=== PATIENT | male | born 1950 | race Caucasian/White ===

== ENCOUNTER 2016-12-02 15:29 | Inpatient (IN) | payer MEDICARE ==
[~2016-12-02] VITALS: Ht 177.8 cm; Wt 59.0 kg
--- NOTE | ~2016-12-02 | CN ---
PATIENT NAME:NIRMALA GREGORIO MEDICAL RECORD: [id number] : 54 LOCATION:D.[facility] ADMIT DATE: 12/02/16 ACCOUNT: [id number] CONSULTING PHYSICIAN: VICKY RAMOS MD REFERRING PHYSICIAN: ROSENDA ODEN MD DATE OF CONSULTATION: 12/03/2016 CONSULT REQUESTING PHYSICIAN: Rosenda Oden MD REASON FOR CONSULTATION: Pneumonia, right mid and right lower lobe. Acute exacerbation of COPD. HISTORY OF PRESENT ILLNESS: Mr. Gregorio is a 66-year-old gentleman with a history of moderate to severe COPD, still everyday smoker, home oxygen dependent. The patient was admitted with a worsening shortness of breath for the last few days. He is coughing, reza colored sputum. Also, he has aches and pain. He is wheezing. There are no chills. REVIEW OF SYSTEMS: Mainly in the history of present illness. PAST MEDICAL HISTORY: 1. COPD of moderate to severe degree. 2. Chronic hypoxic respiratory failure. 3. History of leukemia. 4. History of spontaneous pneumothorax on the right. 5. History of pneumonia times 2 in the past. 6. Gastroesophageal reflux disease. 7. Anxiety. 8. Chronic pain syndrome. 9. Hypertension. 10. Coronary artery disease status post stent placement. PAST SURGICAL HISTORY: 1. Herniorrhaphy. 2. Right-sided pleurodesis. ALLERGIES: There are no known drug allergies. PRESENT MEDICATIONS: [employer] was reviewed. PERSONAL AND SOCIAL HISTORY: The patient is still everyday smoking more than a pack a day. He is also a drinker. FAMILY HISTORY: Noncontributory. PHYSICAL EXAMINATION: GENERAL: Now, the patient is lying comfortably. He is not in acute distress. VITAL SIGNS: The blood pressure is 169/92, pulse is 89, respirations 18, temperature is 97.9, SpO2 is 90-93% on 2 liters nasal cannula. HEENT: Conjunctivae are pink. Sclerae are nonicteric. NECK: Supple, no JVD. CHEST: There are crackles at the right base on forceful expiration. HEART: Rhythm regular, normal sound, no murmur. ABDOMEN: Soft. Bowel sounds present. No hepatosplenomegaly. RECTAL: Deferred. CONSULT REPORT [id number] NIRMALA GREGORIO EXTREMITIES: No cyanosis, no clubbing, no pedal edema. SKIN: Warm, normal turgor. CENTRAL NERVOUS SYSTEM: The patient is awake and alert. There is no obvious cranial nerve abnormality. The gait was not tested. CHEST RADIOGRAPH: There is hyperinflation. There is increased infiltrate in the right mid lung and lower lobe. There is also increased interstitial markings. LABORATORY DATA: CBC: The WBC is 6, hemoglobin is 10.1, hematocrit 31.7, and the platelet 156. Chemistry: Sodium 132, potassium 4.6, BUN is 39, creatinine is 1.9. IMPRESSION: 1. Lmfhz-ve-rvydhva hypoxic respiratory failure. 2. Acute exacerbation of chronic obstructive pulmonary disease. 3. Pneumonia, right middle lobe and right lower lobe, possible community-acquired pneumonia. 4. Acute renal failure. 5. Tobacco dependence syndrome. 6. Gastroesophageal reflux. 7. History of leukemia. 8. History of right spontaneous pneumothorax status post pleurodesis. 9. Hypertension. RECOMMENDATION: I will continue albuterol/ipratropium nebulizer. Start Brovana, budesonide nebulizer. Start methylprednisolone IV. Continue Zithromax and Rocephin IV. Check the CT scan of the chest. Follow up labs in the morning. Dr. Oden, once again thank you for involving me in the care of Mr. Gregorio. TRANSINT:[id number] Voice Confirmation ID: [id number] DOCUMENT ID: [id number] VICKY RAMOS MD CC: MARGRET CLEANING DO and ROSENDA ODEN MD [id number] DICTATION DATE: 12/03/16 1446 DIRECTOR TRANSPORTATION: 12/03/16 2306 ADM IN [place] [address] [place] [address]
[~2016-12-02 15:29] MED LIST: DURAGESIC1 PATCH .2 TRANSDERM; FLOMAX0.4 MG PO; HYDROCODONE-APA1 TAB PO; LEVAQUIN500 MG PO; MOTRIN600 MG PO; NEURONTIN800 MG PO; OMEPRAZOLE20 M1 PO; PHENERGAN25 M1 PO; PRINIVIL10 MG PO; STERAPRED DS 1210 MG PO; ZANAFLEX4 MG PO
[2016-12-02 15:55] LABS: BASOPHILS 0.2 % (0-2); EOSINOPHILS 0.5 % (0-7); HEMATOCRIT 31.7 % (42.0-54.0); HEMOGLOBIN 10.1 g/dL (13.5-17.5); IMMATURE GRANULOCYTES 0.7 % (0-5); LYMPHOCYTES 9.2 % (15-50); MCH 31.2 pg (26.0-34.0); MCHC 31.9 g/dL (31.0-37.0); MCV 97.8 fL (80.0-100.0); MEAN PLATELET VOLUME 11.3 fL (7.4-10.4); MONOCYTES 8.1 % (2-11); NEUTROPHILS 81.3 % (40-80); PLATELET COUNT 156 10x3/uL (130-400); RBC 3.24 10x6/uL (4.20-6.10); RDW 14.9 % (11.5-14.5)
[2016-12-02 16:04] LABS: ALBUMIN 2.4 g/dL (3.4-5.0); ANION GAP 19.4 mmol/L (8-16); BILIRUBIN - TOTAL 0.3 mg/dL (0.2-1.3); CALCIUM 8.3 mg/dL (8.5-10.1); CARBON DIOXIDE 16.2 mmol/L (21.0-32.0); CREATININE - SERUM 1.9 mg/dL (0.6-1.3); POTASSIUM - SERUM 4.6 mmol/L (3.5-5.1); PROTEIN - SERUM 5.9 g/dL (6.4-8.2)
[2016-12-02 22:03] VITALS: BP 118/67; BMI 18.6
[2016-12-02] MEDS ORDERED: MOVANTIK25 MG PO (22:57)
[2016-12-02] MEDS ORDERED: CELEXA20 MG PO (22:57)
[2016-12-02] MEDS ORDERED: PROSCAR5 MG PO (22:58)
[2016-12-02] MEDS ORDERED: BUSPAR5 MG PO (22:59)
[2016-12-02] MEDS ORDERED: INCRUSE ELLI62.5 MCG INH (23:00)
[2016-12-02] MEDS ORDERED: AMBIEN5 MG PO (23:01)
[2016-12-02] MEDS ORDERED: VOLTAREN75 MG PO (23:01)
[2016-12-02] MEDS ORDERED: PROAIR HFA8.5 GM INH (23:02)
[2016-12-03] VITALS: BP 146/70
--- NOTE | 2016-12-03 03:55 | NUR ---
ASSESSED AT THE TIME OF ADMISSION. PT IS ALERT AND ORIENTED, ABLE TO VERBALIZE NEEDS. HE HAS A URINAL AT THE BEDSIDE AND IS ABLE TO TURN AND REPOSITION HIMSELF. HE HAS SCD'S AT THE BEDSIDE BUT IS NOT WEARING THEM. LEFT ARM IS SALINE LOCKED AFTER RECEIVING THE ANTIBIOTICS NEEDED. HE HAS O2 AT 2 LITERS AND LUNG SOUNDS ARE WITH CRACKLES AND WHEEZING. THE BED IS LOW, RAILS UP X'S 1 WITH CALL LIGHT AT HAND AND WHITE BED ALARM IN PLACE.
[2016-12-03 04:00] VITALS: BP 144/68
--- NOTE | 2016-12-03 08:02 | NUR ---
AWAKE AND ALERT AT THIS TIME. OXYGEN ON 2L VIA NC. DISCUSSED WITH PT THE IMPORTANCE OF BED REST WITH HIS PNEUMONIA AND THAT HE SHOULD USE THE URINAL PROVIDED AND CALL WHEN HE NEEDED IT EMPTIED. PT VERBALIZED UNDERSTANDING. CALL LIGHT IN REACH, WILL CONTINUE WITH PLAN OF CARE.
[2016-12-03 09:19] VITALS: BP 129/80
[2016-12-03 09:59] LABS: BASOPHILS 0 % (0-2); EOSINOPHILS 0 % (0-7); HEMATOCRIT 30.6 % (42.0-54.0); HEMOGLOBIN 10.2 g/dL (13.5-17.5); IMMATURE GRANULOCYTES 0.3 % (0-5); LYMPHOCYTES 8.1 % (15-50); MCH 30.9 pg (26.0-34.0); MCHC 33.3 g/dL (31.0-37.0); MEAN PLATELET VOLUME 11.1 fL (7.4-10.4); MONOCYTES 2.8 % (2-11); NEUTROPHILS 88.8 % (40-80); RDW 14.5 % (11.5-14.5)
[2016-12-03 10:00] LABS: MCV 92.7 fL (80.0-100.0); PLATELET COUNT 193 10x3/uL (130-400); WBC 3.6 10x3/uL (4.8-10.8)
[2016-12-03 10:18] LABS: ALBUMIN 2.3 g/dL (3.4-5.0); ANION GAP 17.4 mmol/L (8-16); BILIRUBIN - TOTAL 0.24 mg/dL (0.2-1.3); CALCIUM 9.1 mg/dL (8.5-10.1); CREATININE - SERUM 1.6 mg/dL (0.6-1.3); POTASSIUM - SERUM 4.4 mmol/L (3.5-5.1); PROTEIN - SERUM 6.7 g/dL (6.4-8.2)
--- NOTE | 2016-12-03 11:51 | NUR ---
SCHEDULED MEDICATIONS ADMINISTERED AT THIS TIME AND PT SIGNED BED ALARM DECLINATION. VERBALIZES UNDERSTANDING OF DECLINATION. CALL LIGHT IN REACH, WILL CONTINUE WITH PLAN OF CARE.
[2016-12-03 12:26] VITALS: Ht 177.8 cm; Wt 59.0 kg
[2016-12-03 12:45] VITALS: BP 169/92
--- NOTE | 2016-12-03 13:47 | NUR ---
SCHEDULED MEDICATIONS ADMINISTERED AT THIS TIME. CALL LIGHT IN REACH, WILL CONTINUE WITH PLAN OF CARE.
[2016-12-03 16:45] VITALS: BP 151/77
[2016-12-03 20:00] VITALS: BP 135/72
[2016-12-04] VITALS: BP 146/80
--- NOTE | 2016-12-04 03:42 | NUR ---
ASSESSED AT THE BEGINNING OF THE SHIFT. PT IS ALERT AND ORIENTED, ABLE TO VERBALIZE NEEDS. HE IS WEARING HIS O2 AT 2 LITERS AND HIS TELEMETRY IS SHOWING 90'S SINUS RHYTHM. HE HAS HAD A FEW ANTIBOTICS AND IS NOW BACK ON HIS BANANA BAG IV. BEFORE BED HE WAS TALKING TO HIS ON THE PHONE AND TELLING HER HE WANTED SOMETHING FOR PAIN. AFTER TALKING TO HER FOR HIM WE LEFT IT WITH US TRYING HIM ON THE SLEEPING PILL AND ATIVAN BEFORE CALLING THE MD FOR STRONGER MEDS. HE TOOK THEM AND SLEPT FOR THE FIRST PART OF THE SHIFT, JUST NOW WAKING UP GOOD AND ASKING FOR COFFEE. WE ARE ASSISTING HIM TO THE BATHROOM TO VOID WHEN HE WILL LET US AND HE IS ABLE TO TURN AND REPOSITION BY HIMSELF. THE BED IS LOW, RAILS UP X'S 2 AND THE CALL LIGHT IS AT HAND.
[2016-12-04 04:00] VITALS: BP 133/68
[2016-12-04 05:34] LABS: BASOPHILS 0 % (0-2); EOSINOPHILS 0 % (0-7); HEMATOCRIT 29.1 % (42.0-54.0); HEMOGLOBIN 9.6 g/dL (13.5-17.5); IMMATURE GRANULOCYTES 0.4 % (0-5); MCV 93.9 fL (80.0-100.0); MONOCYTES 4.5 % (2-11); NEUTROPHILS 83.1 % (40-80); PLATELET COUNT 205 10x3/uL (130-400); RDW 14.8 % (11.5-14.5); WBC 2.7 10x3/uL (4.8-10.8)
[2016-12-04 05:55] LABS: ALBUMIN 2.2 g/dL (3.4-5.0); ANION GAP 15.3 mmol/L (8-16); BILIRUBIN - TOTAL 0.2 mg/dL (0.2-1.3); CALCIUM 8.9 mg/dL (8.5-10.1); CARBON DIOXIDE 21.5 mmol/L (21.0-32.0); CREATININE - SERUM 1.4 mg/dL (0.6-1.3); POTASSIUM - SERUM 3.8 mmol/L (3.5-5.1); PROTEIN - SERUM 6.4 g/dL (6.4-8.2)
--- NOTE | 2016-12-04 07:45 | NUR ---
ASSESSMENT COMPLETE. IV TO L FA PATENT. BANANA BAG INFUSING AT 75 CC/HR VIA PUMP. O2 2L NC IN USE. REFUSING TO WEAR SCD'S. CALL CENTER OPERATOR SHOWING SR 91 PER TECH. NONPRODUCTIVE COUGH. GENERALIZED WEAKNESS. DENIES ANY NEEDS AT PRESENT.
[2016-12-04 07:49] VITALS: BP 149/77
--- NOTE | 2016-12-04 10:00 | NUR ---
RESTING QUIETLY IN BED WITH EYES CLOSED. RESP EVEN,NONLABORED.
[2016-12-04 12:18] VITALS: BP 140/70
--- NOTE | 2016-12-04 13:30 | NUR ---
RESTING QUIETLY WITH EYES CLOSED. RESP EVEN,NONLABORED.
[2016-12-04 14:43] VITALS: BP 141/76
--- NOTE | 2016-12-04 15:46 | NUR ---
C/O NOT HAVING HIS HOME MED NORCO. BECOMING VERY UPSET AND WANTING THE DOCTOR CALLED. SPOKE WITH DR. ODEN. NEW ORDER RECEIVED FOR PATIENT TO TAKE HIS NORCO PRESCRIBED AT HOME.
--- NOTE | 2016-12-04 16:00 | NUR ---
RESTING QUIETLY AT THIS TIME.
--- NOTE | 2016-12-04 18:30 | NUR ---
NO CHANGES NOTED AT PRESENT.
--- NOTE | 2016-12-04 19:00 | NUR ---
PATIENT IN BED WATCHING TV. HOB 30 DEGREES. AAOX4. RR EVEN AND UNLABORED. O2 @ 2L VIA NC. 0 S/S OF DISTRESS. STATES PAIN IS A 7/10. IV TO LEFT FA PATENT WITH NO REDNESS OR SWELLING. TELEMETRY ON. SCD'S IN ROOM BUT OFF. SRX2. BED LOW. CALL LIGHT WITHIN REACH.
[2016-12-04 20:00] VITALS: BP 151/78
--- NOTE | 2016-12-04 22:30 | NUR ---
ALL NIGHTTIME MEDICATIONS ADMINISTERED PER ORDER. ATIVAN GIVEN FOR AGITATION. NO OTHER NEEDS AT THIS TIME.
[2016-12-05] VITALS: BP 163/83
--- NOTE | 2016-12-05 03:06 | NUR ---
PATIENT SLEEPING WITH NO DISTRESS NOTED. CALL LIGHT WITHIN REACH.
[2016-12-05 04:00] VITALS: BP 159/84
[2016-12-05 05:13] LABS: BASOPHILS 0 % (0-2); EOSINOPHILS 0 % (0-7); HEMATOCRIT 28.2 % (42.0-54.0); HEMOGLOBIN 9.3 g/dL (13.5-17.5); IMMATURE GRANULOCYTES 1.2 % (0-5); LYMPHOCYTES 9.8 % (15-50); MCH 31.3 pg (26.0-34.0); MCV 94.9 fL (80.0-100.0); MONOCYTES 4.7 % (2-11); NEUTROPHILS 84.3 % (40-80); PLATELET COUNT 196 10x3/uL (130-400); RBC 2.97 10x6/uL (4.20-6.10); RDW 14.8 % (11.5-14.5)
[2016-12-05 05:14] LABS: WBC 3.4 10x3/uL (4.8-10.8)
[2016-12-05 05:52] LABS: ALBUMIN 2.3 g/dL (3.4-5.0); ANION GAP 13.5 mmol/L (8-16); BILIRUBIN - TOTAL 0.25 mg/dL (0.2-1.3); CALCIUM 8.5 mg/dL (8.5-10.1); CARBON DIOXIDE 22.3 mmol/L (21.0-32.0); CREATININE - SERUM 1.2 mg/dL (0.6-1.3); POTASSIUM - SERUM 3.8 mmol/L (3.5-5.1); PROTEIN - SERUM 5.9 g/dL (6.4-8.2)
--- NOTE | 2016-12-05 07:15 | NUR ---
RESTING QUIETLY WITH EYES CLOSED. RESP EVEN,NONLABORED.
[2016-12-05 08:23] VITALS: BP 156/84
--- NOTE | 2016-12-05 09:15 | NUR ---
ASSESSMENT COMPLETE. IV TO L FA PATENT. BANANA BAG INFUSING AT 75 CC/HR VIA PUMP. O2 2L NC. NONPRODUCTIVE COUGH. REFUSING SCD'S. E/M ENGINEER SHOWING SR 94 PER TECH.
--- NOTE | 2016-12-05 09:50 | NUR ---
REFUSING TO AMBULATE WITH PHYSICAL THERAPY.
[2016-12-05 12:55] VITALS: BP 149/78
--- NOTE | 2016-12-05 13:00 | NUR ---
NO CHANGES NOTED AT PRESENT.
[2016-12-05 15:27] VITALS: BP 145/77
--- NOTE | 2016-12-05 17:00 | NUR ---
NO CHANGES NOTED AT PRESENT.
[2016-12-05 19:00] VITALS: BP 165/88
[2016-12-06 04:00] VITALS: BP 148/79
[2016-12-06 05:48] LABS: BASOPHILS 0 % (0-2); EOSINOPHILS 0 % (0-7); HEMATOCRIT 29.1 % (42.0-54.0); HEMOGLOBIN 9.5 g/dL (13.5-17.5); IMMATURE GRANULOCYTES 1.8 % (0-5); LYMPHOCYTES 12.4 % (15-50); MCH 30.7 pg (26.0-34.0); MCHC 32.6 g/dL (31.0-37.0); MCV 94.2 fL (80.0-100.0); MEAN PLATELET VOLUME 10.5 fL (7.4-10.4); MONOCYTES 9.2 % (2-11); NEUTROPHILS 76.6 % (40-80); PLATELET COUNT 197 10x3/uL (130-400); RBC 3.09 10x6/uL (4.20-6.10); RDW 14.4 % (11.5-14.5); WBC 3.8 10x3/uL (4.8-10.8)
[2016-12-06 06:11] LABS: ALBUMIN 2.4 g/dL (3.4-5.0); ANION GAP 11.6 mmol/L (8-16); BILIRUBIN - TOTAL 0.25 mg/dL (0.2-1.3); CALCIUM 8.6 mg/dL (8.5-10.1); CARBON DIOXIDE 26.7 mmol/L (21.0-32.0); CREATININE - SERUM 1.1 mg/dL (0.6-1.3); POTASSIUM - SERUM 3.3 mmol/L (3.5-5.1); PROTEIN - SERUM 6.1 g/dL (6.4-8.2)
--- NOTE | 2016-12-06 07:10 | NUR ---
PATIENT RECEIVED ALERT IN HIGH CHRISTIE POSITION. RESPIRATIONS EVEN AND UNLABORED. DENIES NEEDS. SIDE RAILS UP X2. BED IN LOW POSITION. CALL LIGHT IN REACH.
[2016-12-06 07:45] VITALS: BP 148/84
--- NOTE | 2016-12-06 08:30 | NUR ---
SITTING UP ON SIDE OF BED EATING BREAKFAST. TOLERATING WELL. SCHEDULED MEDICATION ADMINISTERED. DENIES NEEDS. BED IN LOW POSITION. SIDE RAILS UP X2. CALL LIGHT IN REACH.
--- NOTE | 2016-12-06 10:00 | NUR ---
ALERT IN BED READING NEWSPAPER. NO SIGNS OF DISTRESS NOTED. STATES "I GOT A LITTLE WINDED WHEN I WAS TAKING A BATH EARLIER, BUT AM BETTER NOW." DENIES NEEDS. SIDE RAILS UP X2. BED IN LOW POSITION. CALL LIGHT IN REACH.
[2016-12-06 11:26] VITALS: BP 173/89
--- NOTE | 2016-12-06 13:30 | NUR ---
ALERT IN BED. NO SIGNS OF DISTRESS NOTED. DURAGESIC PATCH CHANGED PER ORDER. C/O PAIN 02/10. SCHEDULED MEDICATION ADMINISTERED. NO FURTHER NEEDS VOICED. SIDE RAILS UP X2. BED IN LOW POSITION. CALL LIGHT IN REACH.
--- NOTE | 2016-12-06 13:56 | NUR ---
* Is the patient Alert and Oriented? Yes 0 * How many steps to enter\exit or inside your home? 8 0 * PCP [facility] 0 * Pharmacy [facility] 0 * Preadmission Environment Home with Family 0 * ADLs Independent 0 * Equipment Cane Oxygen Shower Chair Walker 0 * List name and contact numbers for known caregivers / representatives who currently or will assist patient after discharge: YADI LAND () [phone] 0 * Community resources currently utilized None 0 * Please name any agencies selected above. DME:HOME O2- [facility] 0 * Additional services required to return to the preadmission environment? No 0 * Can the patient safely return to the preadmission environment? Yes 0 * Has this patient been hospitalized within the prior 30 days at any hospital? No 0 Grand Total: 0 Patient Name: NIRMALA LAND Admission Status: ER Accout number: [id number] Admission Date: 12-02-2016 : 1950 Admission Diagnosis:ACUTE RESPIRATORY FAILURE, UNSP W HYPOXIA OR HYPERCAPNI Attending: EUGENE Current LOS: 4 Anticipated DC Date: 12-08-2016 Planned Disposition: Home Primary Insurance: [employer] ADV Discharge Planning Comments: CM met with patient to assess discharge planning needs. Patient states that he lives with his (Yadi Land - [phone]) where he plans to return home to. He states he has 8 stairs with a rail to enter in his home. He states that he is independent with his care and needs. He currently has a cane,walker, shower chair and home O2. He gets his O2 with [facility]. He states that his son Howard will be the one to drive hime home when her is ready for discharge. He refuses Home Health at this time. CM will continue to follow and assist as needed with discharge planning needs. PCP: [facility] D[facility]: [facility] ([facility]) : [facility] ([phone]) Material Disposition Inspector: Sun Rodriguez
--- NOTE | 2016-12-06 15:05 | NUR ---
NUTRITION MONITORING & EVAL CHART REVIEWED. PT TOLERATING REG MECH SOFT DIET. 25 TO 50% INTAKE RECENT MEALS. WILL CONTINUE TO PROVIDE DIET, MONITOR PO INTAKE.\ RD FOLLOWING
[2016-12-06 16:38] VITALS: BP 156/88
--- NOTE | 2016-12-06 18:49 | NUR ---
ALERT IN BED. NO SIGNS OF DISTRESS NOTED. SCHEDULED MEDICATION ADMINISTERED. SIDE RAILS UP X2. BED IN LOW POSITION. CALL LIGHT IN REACH.
[2016-12-06 20:00] VITALS: BP 153/82
--- NOTE | 2016-12-06 20:00 | NUR ---
ASSESSMENT PER FLOWSHEET. IV PATENT LEFT WRIST OF MVI BANANA BAG INFUSING AT 75CC'S/HR SITE CLEAR. NS AT KVO RATE. TELM. SHOWS SR WITH HR 79. O2 ON AT 2 L/M PER NC. VOIDS WELL IN URINAL.
--- NOTE | 2016-12-06 21:15 | NUR ---
MEDS GIVEN PER MAR.
--- NOTE | 2016-12-06 22:15 | NUR ---
REQUESTING ATIVAN FOR ANXIETY AND REST.ATIVAN 1MG IVP GIVEN FOR ANXIETY AND REST.
[2016-12-07] VITALS: BP 144/80
--- NOTE | 2016-12-07 | NUR ---
EYES CLOSED RESPIRATIONS WITH EASE AND UNLABORED.
--- NOTE | 2016-12-07 03:00 | NUR ---
RESTING QUIETLY VOIDS IN URINAL.
--- NOTE | 2016-12-07 05:00 | NUR ---
AWAKE DRINKING A CUP OF COFFEE. VOIDED IN URINAL.
[2016-12-07 05:03] LABS: BASOPHILS 0 % (0-2); EOSINOPHILS 0 % (0-7); HEMOGLOBIN 11.2 g/dL (13.5-17.5); IMMATURE GRANULOCYTES 2.4 % (0-5); MCH 30.8 pg (26.0-34.0); MCHC 31.9 g/dL (31.0-37.0); MEAN PLATELET VOLUME 10.3 fL (7.4-10.4); MONOCYTES 6.7 % (2-11); NEUTROPHILS 78.9 % (40-80); RBC 3.64 10x6/uL (4.20-6.10); RDW 14.6 % (11.5-14.5)
[2016-12-07 05:06] LABS: HEMATOCRIT 35.1 % (42.0-54.0); MCV 96.4 fL (80.0-100.0); PLATELET COUNT 243 10x3/uL (130-400); WBC 4.9 10x3/uL (4.8-10.8)
[2016-12-07 05:28] LABS: ALBUMIN 2.6 g/dL (3.4-5.0); BILIRUBIN - TOTAL 0.29 mg/dL (0.2-1.3); CALCIUM 8.6 mg/dL (8.5-10.1); CARBON DIOXIDE 30.6 mmol/L (21.0-32.0); CREATININE - SERUM 1.2 mg/dL (0.6-1.3); PROTEIN - SERUM 6.5 g/dL (6.4-8.2)
[2016-12-07 05:29] LABS: POTASSIUM - SERUM 4.6 mmol/L (3.5-5.1)
[2016-12-07 07:15] LABS: MAGNESIUM - SERUM 2.6 mg/dL (1.8-2.4); PHOSPHOROUS 4.2 mg/dL (2.5-4.9)
--- NOTE | 2016-12-07 07:56 | NUR ---
AWAKE AND ALERT AT THIS TIME. SCHEDULED MEDICATIONS ADMINISTERED AND ASSESSMENT PERFORMED PER FLOWSHEET. OXYGEN ON 2L VIA NC WITH RESPIRATIONS EVEN AND NON LABORED AT REST. REFUSES SCD'S, CALL LIGHT IN REACH. DENIES PAIN OR FURTHER NEEDS AT THIS TIME. WILL CONTINUE WITH PLAN OF CARE.
--- NOTE | 2016-12-07 08:15 | NUR ---
IV ACCESS-22 GAUGE INSERTED IN RIGHT FOREARM FOR ACCESS. LEIDY LYNCH RN
[2016-12-07 08:18] VITALS: BP 155/72
[2016-12-07 11:47] VITALS: BP 144/81
--- NOTE | 2016-12-07 12:16 | NUR ---
Rehab Note- Acute Reab order received. The patient has [employer] insurance and will require a PreAuth prior to IRF stay. Will begin the PreAuth process. Thank you for this referral! Tarsha Carballo, AN Clinical Liaison, [facility] Rehab/[place]
--- NOTE | 2016-12-07 13:55 | NUR ---
CM met with patient and he is agreeable to go to IP Rehab.
[2016-12-07] MEDS ORDERED: ZITHROMAX 500M500 MG IVPB (14:01)
[2016-12-07] MEDS ORDERED: ROCEPHIN 1 GM/D51 G1 IVPB (14:01)
[2016-12-07] MEDS ORDERED: BROVANA15 MCG/2 M INH (14:02)
[2016-12-07] MEDS ORDERED: NICODERM C1 PATCH .3 TRANSDERM (14:02)
[2016-12-07] MEDS ORDERED: IPRAT-ALBUT 0.5-3 ML UPD ×2 (14:02)
[2016-12-07] MEDS ORDERED: FLUTICASONE PRO16 GM NASAL (14:03)
[2016-12-07] MEDS ORDERED: MUCINEX DM ER1 EAC1 PO (14:03)
[2016-12-07] MEDS ORDERED: PULMICORT0.5 MG/21 UPD (14:03)
[2016-12-07] MEDS ORDERED: TESSALON PERLE100 MG PO (14:03)
[2016-12-07] MEDS ORDERED: SINGULAIR10 MG PO (14:03)
[2016-12-07] MEDS ORDERED: MIRALAX17 GM PO (14:04)
[2016-12-07] MEDS ORDERED: VITAMIN B-1100 M1 PO (14:04)
[2016-12-07] MEDS ORDERED: FOLIC ACID1 MG PO (14:04)
[2016-12-07 16:46] VITALS: BP 157/86
[2016-12-07 20:00] VITALS: BP 152/87
[2016-12-08] VITALS: BP 150/72
[2016-12-08 04:00] VITALS: BP 144/71
[2016-12-08 05:19] LABS: BASOPHILS 0 % (0-2); EOSINOPHILS 0 % (0-7); HEMATOCRIT 35.8 % (42.0-54.0); HEMOGLOBIN 11.7 g/dL (13.5-17.5); IMMATURE GRANULOCYTES 1.9 % (0-5); LYMPHOCYTES 10.8 % (15-50); MCHC 32.7 g/dL (31.0-37.0); MEAN PLATELET VOLUME 10.4 fL (7.4-10.4); MONOCYTES 5.8 % (2-11); NEUTROPHILS 81.5 % (40-80); PLATELET COUNT 253 10x3/uL (130-400); RBC 3.77 10x6/uL (4.20-6.10); RDW 14.4 % (11.5-14.5); WBC 5.4 10x3/uL (4.8-10.8)
[2016-12-08 05:53] LABS: ALBUMIN 2.6 g/dL (3.4-5.0); ALKALINE PHOSPHATASE 65 U/L (46-116); ALT (SGPT) 29 U/L (10-68); CALC OSMOLALITY 283 mosm/kg (275-300); CALCIUM 8.4 mg/dL (8.5-10.1); CARBON DIOXIDE 28.2 mmol/L (21.0-32.0); CHLORIDE - SERUM 103 mmol/L (98-107); GLUCOSE 129 mg/dL (74-106); POTASSIUM - SERUM 4.1 mmol/L (3.5-5.1); PROTEIN - SERUM 6.4 g/dL (6.4-8.2); SODIUM 139 mmol/L (136-145); UREA NITROGEN 24 mg/dL (7-18); eGFR NON AFRICAN AMERICAN 80 mL/min (90-120)
--- NOTE | 2016-12-08 07:25 | NUR ---
ASSESSMENT COMPLETE. SL TO R FA. O2 2L NC IN USE. FLOOR CLERK SHOWING SR 74 PER TECH. REFUSING TO WEAR SCDS. DENIES ANY NEEDS AT PRESENT.
[2016-12-08 07:49] VITALS: BP 159/85
--- NOTE | 2016-12-08 09:46 | NUR ---
NO CHANGES NOTED AT PRESENT.
--- NOTE | 2016-12-08 11:31 | NUR ---
Rehab Note- Faxed PreAuth info to [facility]. Awaiting review for possible NP IRF stay. Tarsha Carballo RN Clinical Liaison, [facility] Rehab/[place]
[2016-12-08 12:19] VITALS: BP 144/78
--- NOTE | 2016-12-08 13:00 | NUR ---
DENIES ANY NEEDS AT PRESENT. NO CHANGES NOTED AT PRESENT.
--- NOTE | 2016-12-08 14:30 | NUR ---
DENIES ANY NEEDS AT PRESENT.
[2016-12-08 15:35] VITALS: BP 154/83
[2016-12-08 20:00] VITALS: BP 166/88
[2016-12-09] VITALS: BP 158/86
--- NOTE | 2016-12-09 00:36 | NUR ---
1944)REC'D. IN BED REQUESTING SLEEPING PILL NOW INSTRUCTED WILL BE CHECKING MEDS AND WILL BRING THEM AT 2100.ALSO REQUESTING IV ATIVAN INSTRUCTED LETS WAIT A LITTLE BIT IN BETWEEN NARCO AND AMBIEN BEFORE TAKING IV ATIVAN. BECAME VERY ANGRY STATES THEY BEEN GIVING IT TO ME EVERY NITE.WILL CONTINUE TO MONITOR FOR ANY CHGES. AND FOLLOW CURRENT PLAN OF CARE.
[2016-12-09 04:00] VITALS: BP 162/77
--- NOTE | 2016-12-09 07:25 | NUR ---
ASSESSMENT COMPLETE. SL TO R FA PATENT. LINUX SYSTEMS ANALYST SHOWING SR 79 PER TECH. O2 2L NC IN USE. NONPRODUCTIVE COUGH. REFUSING TO WEAR SCD'S. DENIES ANY NEEDS AT PRESENT.
[2016-12-09 08:08] VITALS: BP 148/77
--- NOTE | 2016-12-09 08:46 | NUR ---
Met with patient about other options if he is denied for in patient rehab. Patient is agreeable to Home Health and has chosen [facility] BLAINE signed.
--- NOTE | 2016-12-09 10:04 | NUR ---
NO CHANGES NOTED.
[2016-12-09 11:21] LABS: BASOPHILS 0 % (0-2); EOSINOPHILS 0.5 % (0-7); HEMATOCRIT 36.8 % (42.0-54.0); HEMOGLOBIN 11.8 g/dL (13.5-17.5); IMMATURE GRANULOCYTES 0.6 % (0-5); MCH 31.1 pg (26.0-34.0); MCHC 32.1 g/dL (31.0-37.0); MCV 96.8 fL (80.0-100.0); MEAN PLATELET VOLUME 10.6 fL (7.4-10.4); MONOCYTES 2.7 % (2-11); NEUTROPHILS 92.2 % (40-80); PLATELET COUNT 241 10x3/uL (130-400); RDW 14.8 % (11.5-14.5)
[2016-12-09 11:23] LABS: WBC 10.3 10x3/uL (4.8-10.8)
[2016-12-09 11:33] LABS: ALBUMIN 2.6 g/dL (3.4-5.0); ANION GAP 10.6 mmol/L (8-16); BILIRUBIN - TOTAL 0.47 mg/dL (0.2-1.3); CALCIUM 8.1 mg/dL (8.5-10.1); CREATININE - SERUM 1.1 mg/dL (0.6-1.3); POTASSIUM - SERUM 3.6 mmol/L (3.5-5.1); PROTEIN - SERUM 6.1 g/dL (6.4-8.2)
--- NOTE | 2016-12-09 12:49 | NUR ---
REFERRAL SENT TO [facility] AT [facility] ([phone])
--- NOTE | 2016-12-09 13:55 | NUR ---
SL REMOVED. CATHETER TIP INTACT. DISCHARGE TEACHING GIVEN TO PATIENT. VOICED UNDERSTAND OF INSTRUCTIONS. SCRIPTS GIVEN TO PATIENT. WILL DC HOME WHEN RIDE AVAILABLE FROM FAMILY.
--- NOTE | 2016-12-09 14:05 | NUR ---
Patient discharged home today with family to drive home. Patient set up with . Patient denies any further needs from
--- NOTE | 2016-12-09 15:15 | NUR ---
DC'D HOME WITH FAMILY. ESCORTED TO VEHICLE BY VOLUNTEER VIA WC WITH BELONGINGS.
== END 2016-12-09 15:15 | disposition home health service (06) | DRG 189 ==
LOC: D.ER 15:29 → D.MS 19:02
PROVIDERS: Emergency Medicine; Family Medicine; Internal Medicine Pulmonary Disease; ADMIT Family Medicine
DX: J96.21 Acute and chronic respiratory failure with hypoxia (principal); J18.9 Pneumonia, unspecified organism; J44.0 Chronic obstructive pulmonary disease with (acute) lower respiratory infection; J44.1 Chronic obstructive pulmonary disease with (acute) exacerbation; N17.9 Acute kidney failure, unspecified; E87.1 Hypo-osmolality and hyponatremia; F17.213 Nicotine dependence, cigarettes, with withdrawal; Z87.01 Personal history of pneumonia (recurrent); K21.9 Gastro-esophageal reflux disease without esophagitis; I10 Essential (primary) hypertension

== ENCOUNTER 2017-09-13 03:16 | Inpatient (IN) | payer MEDICARE ==
[~2017-09-13] VITALS: Ht 175.3 cm; Wt 55.8 kg
--- NOTE | ~2017-09-13 | EC ---
PATIENT:NIRMALA GREGORIO DATE OF SERVICE: 09/13/17 SEX: M MEDICAL RECORD: [id number] DATE OF : [birth year] LOCATION:D.M2 D.210 AGE OF PATIENT: 66 ADMISSION DATE: 09/13/17 REFERRING PHYSICIAN: INTERPRETING PHYSICIAN: GARIMA CHOPRA MD ECHOCARDIOGRAM REPORT ECHO CHARGES 4 ECHO COMPLETE CLINICAL DIAGNOSIS: SOB/PNEUMONIA/COPD ECHOCARDIOGRAPHIC MEASUREMENTS (adult normal given) AC root (d.<3.7cm) 3.9 cm LV Septum d (<1.2 cm> 1.5 cm Valve Excursion 2.5 cm LV Septum (systole) 1.9 cm Left Atria (s.<4.0cm> 4.1 cm LVPW d(<1.2cm) 1.5 cm RV (d.<2.3cm) 4.7 cm LVPW (sytole) 1.8 cm LV diastole(<5.6CM) 4.9 cm MV E-F(>70mm/sec) cm LV systole 2.5 cm LVOT Diameter 2.1 cm MV exc.(>10mm) cm Est.ejection fraction (50-75%) % Pericardial Effusion N DOPPLER: LVIT cm/sec A 118 cm/sec E 84.0 cm/sec LA cm/sec RVSP 101 mmHg LVOT 95 cm/sec AOP1/2T m/s Asc. Ao 144 cm/sec RVOT 84 cm/sec RA cm/sec PA 124 cm/sec AV Gradient Peak 8.32 mmHg AV Mean 4.00 mmHg AV Area 2.5 cm MV Gradient Peak 6.18 mmHg MV Mean 2.36 mmHg MV Area cm COMMENTS: Telegraph Operator: Per ESTES Sports Nutritionist: 1 Dr. Chopra TAPE# PACS DATE OF SERVICE: 09/13/2017 PROCEDURE: Echocardiogram. FINDINGS: 1. Left ventricular chamber size is within normal limits. Left ventricular systolic function is normal. Overall ejection fraction estimated at 60%. 2. Left atrium, right atrium, and right ventricle chamber sizes are dilated. Left atrium measures 4.1 cm. 3. Valvular structures have normal structure and motion. ECHOCARDIOGRAM REPORT [id number] NIRMALA GREGORIO 4. Doppler interrogation reveals mild mitral regurgitation, severe tricuspid regurgitation, no other valvular insufficiency or stenosis. Pulmonary systolic pressure is markedly elevated at 101 mmHg. 5. No evidence of pericardial effusion or left ventricular thrombus. TRANSINT:[id number] Voice Confirmation ID: [id number] DOCUMENT ID: [id number] GARIMA CHOPRA MD at 1202 CC: [id number] DICTATION DATE: 09/13/17 1218 INTERFACE DESIGNER: 09/13/17 1251 DIS IN 09/17/17 [place] [id number] [place] [id number]
--- NOTE | ~2017-09-13 | HEMODYNAMI ---
PATIENT:NIRMALA GREGORIO MEDICAL RECORD: [id number] : 54 [id number] ADMISSION DATE: 09/13/17 Generatedon:09/16/201714:31 Patient name: NIRMALA GREGORIO Patient #: [id number] SSN: : 1950 Date of study: 09/16/2017 Page: Of Hemodynamic Procedure Report Patient Data Patient Demographics Procedure consent was obtained First Name: NIRMALA Gender: Male Last Name: DARLINE : 1950 [facility] Initial: K Age: 66 year(s) Patient #: [id number] Race: Additional ID: [id number] Contact details Address: [address] [place] [address] State: [place] City: [place] Zip code: [address] Admission Admission Data Admission Date: 09/13/2017 Admission Time: 7:04 Admit Source: Other Room #: D.2104 Procedure Procedure Types Cath Procedure Diagnostic Procedure Right Heart RHC and LHC w/Coronaries Sedation Charges Moderate Sedation up to 15 minutes PCI Procedure Coronary Stent Coronary Stent Initial x2 Procedure Description Procedure Date Procedure Date: 09/16/2017 Procedure Start Time: 14:10 Procedure End Time: 14:31 Procedure Staff Name Function Michael Chopra MD Performing Physician Monae Solitario RT Monitor Nancie Morris RN Nurse Vane Wright RT Scrub Procedure Data Cath Procedure Fluoroscopy Diagnostic fluoroscopy Total fluoroscopy Time: 6.1 time: 6.1 min min Diagnostic fluoroscopy Total fluoroscopy dose: 639 dose: 639 mGy mGy Contrast Material Contrast Material Type Amount (ml) Isovue 300 102 Entry Location Entry Primary Successful Side Size Upsize Upsize Entry Closure Succes sful Closure Location (Fr) 1 (Fr) 2 (Fr) Remarks Device Remarks Femoral Right 5 Fr 6 Fr Exoseal artery Short Femoral Right 7 Fr vein Short Estimated blood loss: 10 ml Diagnostic catheters Device Type Used For End Catheter Placement SWAN 7Fr Thermodilution Procedure cather (131F7P) MULTIPACK Pigtail 5 Fr Procedure catheter MULTIPACK JL 4.0 5Fr Procedure catheter MULTIPACK 3DRC 5Fr Procedure catheter Procedure Complications No complications Procedure Medications Medication Administration Route Dosage Oxygen NC 2 l/min Lidocaine 2% added to field 20 Heparin Flush Bag added to field 2 bags (1000units/500ml NS) 0.9% NaCl I.V. 100 ml/hr Versed I.V. 2 mg Fentanyl I.V. 100 mcg Versed I.V. 1 mg Fentanyl I.V. 50 mcg Versed I.V. 1 mg Fentanyl I.V. 50 mcg Heparin Bolus I.V. 4000 units Plavix P.O. 75 mg Adenosine IV 3mg/ml Hemodynamics Rest Heart Rate: 75 (bpm) Pressure Samples Time Site Value (mmHg) Purpose Heart Use Rate(bpm) 14:13 PCW 6/6(5) Snapshot 75 14:13 PA 44/16(25) Snapshot 73 14:14 RV 43/-6,0 Snapshot 75 14:14 RA 1/-1(-1) Snapshot 104 14:15 LV 91/5,-1 Snapshot 80 Gradients Valve Time Site Site Mean SEP/DFP Peak To Heart Use 1 2 (mmHg) (sec/min) Peak Rate (mmHg) (bpm) Aortic 14:16 LV AO 78 Snapshots Pre Cath Intra NCS Post Cath Vital Signs Time Heart Resp SPO2 etCO2 NIBP (mmHg) Rhythm Pain Sedation Rate (ipm) (%) (mmHg) Status Level (bpm) 13:48:35 77 15 95 22.9 160/84(153) NSR 0 (11) 10(A) , No pain 13:52:49 77 16 97 23.7 162/95(147) NSR 0 (11) 10(A) , No pain 13:57:05 73 18 96 24.4 156/86(131) NSR 0 (11) 10(A) , No pain 14:01:21 73 16 96 22.9 146/83(123) NSR 0 (11) 10(A) , No pain 14:05:31 77 15 96 24.4 146/86(118) NSR 0 (11) 10(A) , No pain 14:09:43 75 15 96 24.4 142/79(120) NSR 0 (11) 10(A) , No pain 14:13:53 72 17 96 22.9 145/85(125) NSR 0 (11) 9(A) , No pain 14:18:03 80 19 96 24.4 142/83(119) NSR 0 (11) 9(A) , No pain 14:22:11 77 19 96 25.2 150/86(130) NSR 0 (11) 9(A) , No pain 14:26:23 80 15 96 22.9 147/82(129) NSR 0 (11) 10(A) , No pain 14:30:35 79 10 96 24.4 147/82(120) NSR 0 (11) 10(A) , No pain Medications Time Medication Route Dose Verified Delivered Reason N otes Effectiveness by by 13:46:55 Oxygen NC 2 l/min Michael Canada used for Nav Morris RN procedure 13:47:04 Lidocaine 2% added 20ml vial Michael Rodriguez for local to Nav Chopra MD anesthetic field 13:47:11 Heparin Flush added 2 bags Michael Rodriguez used for Bag to Nav Chopra MD procedure (1000units/500ml field NS) 13:47:19 0.9% NaCl I.V. 100 ml/hr Michael Canada Per physician Nav Morris RN 13:50:03 Adenosine IV drip Michael Canada p repared for 3mg/ml prepared Nav Morris RN procedure for per dr chopra procedure. , not used, pulmonary pressure appropriate. 14:07:15 Versed I.V. 2 mg Michael Canada for sedation Nav Morris RN 14:07:20 Fentanyl I.V. 100 mcg Michael Canada for sedation Nav Morris RN 14:11:49 Versed I.V. 1 mg Michael Canada for sedation Nav Morris RN 14:11:53 Fentanyl I.V. 50 mcg Michael Canada for sedation Nav Morris RN 14:17:03 Versed I.V. 1 mg Michael Canada for sedation Nav Morris RN 14:17:06 Fentanyl I.V. 50 mcg Michael Canada for sedation Nav Morris RN 14:19:36 Heparin Bolus I.V. 4000 units Michael Canada for v erified Nav Morris RN anticoagulation with dr chopra 14:27:08 Plavix P.O. 75 mg Michaelrichmond Morris RN antiplatelet therapy Procedure Log Time Note 13:22:34 Admit Source: Other 13:22:59 Diagnostic Cath status Elective 13:23:01 Michael Chopra MD sent for patient. Start room use. 13:23:02 Time tracking: Regular hours 13:23:07 Plan of Care:Hemodynamics will remain stable., Cardiac rhythm will remain stable., Comfort level will be maintained., Respiratory function will remain adequate., Patient/ family verbilizes understanding of procedure., Procedure tolerated without complication., Recovers from procedure without complications.. 13:23:15 Patient received from Pre/Post Procedure Room to CCL 2 Alert and oriented. Tansferred to table in Supine position. 13:23:18 Warm blankets applied, and moris hugger turned on for patient comfort. 13:23:19 Correct patient and procedure confirmed by team. 13:23:22 Signed procedure consent form obtained from patient. 13:23:39 H&P Date Dictated: 09/13/2017 Within 30 days and on chart., H&P Addendum completed by physician on day of procedure. (MUST COMPLETE FOR ALL OUTPATIENTS). 13:23:41 Pre-procedure instructions explained to patient. 13:23:51 Family in waiting room. 13:24:00 Patient NPO since Midnight. 13:24:38 Is the patient allergic to Iodine/contrast media? No. 13:24:39 Was the patient premedicated? Yes 13:43:09 Patient diabetic? No. 13:43:22 Snore? Yes 13:43:24 Sleep apnea? No 13:43:42 Airway obstruction? Yes COPD, Asthma, Emphazema 13:43:46 Dentures? No ? 13:43:55 Patient pain scale 0/10 ?. 13:44:04 IV patent on arrival in left wrist with 0.9% NaCl at KVO. 13:44:09 Lab results completed and on chart. 13:44:13 Right groin area was prepped with chlora-prep and draped in sterile fashion 13:44:15 Sharps counted by scrub and verified by R.N. 13:44:16 Physician paged 13:46:55 Oxygen 2 l/min NC was administered by Nancie Morris RN; used for procedure; 13:47:04 Lidocaine 2% 20ml vial added to field was administered by Michael Chopra MD; for local anesthetic; 13:47:11 Heparin Flush Bag (1000units/500ml NS) 2 bags added to field was administered by Michael Chopra MD; used for procedure; 13:47:19 0.9% NaCl 100 ml/hr I.V. was administered by Nancie Morris RN; Per physician; 13:47:22 Vital chart was started 13:50:03 Adenosine IV 3mg/ml drip prepared for procedure. was administered by Nancie Morris RN; ; prepared for procedure per dr chopra , not used, pulmonary pressure appropriate. 13:50:10 Use device set Femoral Dx 13:53:35 Medline Cath Pack ([id number]) opened to sterile field. 13:53:36 SHEATH 5FR [place] (UMU121) opened to sterile field. 13:53:38 ACIST Syringe (82431) opened to sterile field. 13:53:38 Bag Decanter (2002S) opened to sterile field. 13:53:40 DIAGNOSTIC WIRE .035 260cm J wire (752963) opened to sterile field. 13:53:42 ACIST Hand Control (18882) opened to sterile field. 13:53:42 ACIST Manifold (44157) opened to sterile field. 13:53:43 DIAGNOSTIC Multipack 5Fr catheter set (XX9902) opened to sterile field. 13:53:44 Tegaderm 4 x 4 (1626W) opened to sterile field. 13:53:46 PERCUTANEOUS ENTRY 19GA needle opened to sterile field. 13:53:52 SHEATH 7FR [place] (KYY213) opened to sterile field. 13:53:55 STOPCOCK 3-Way Large Bore (K60841) opened to sterile field. 13:57:04 Zero performed for pressure channel P1 13:57:14 Zero performed for pressure channel P1 13:57:28 Zero performed for pressure channel P1 14:06:32 Physician arrived 14:06:32 --------ALL STOP TIME OUT------ 14:06:33 Final Timeout: patient, procedure, and site verified with staff and physician. All members of the team are in agreement. 14:06:36 Right groin site verified by team. 14:06:39 Physical assessment completed. ASA score P 2 - A patient with mild systemic disease as per Michael Cohpra MD. 14:06:43 Sedation plan: IV Moderate Sedation Medication:Versed, Fentanyl 14:07:15 Versed 2 mg I.V. was administered by Nancie Morris RN; for sedation; 14:07:20 Fentanyl 100 mcg I.V. was administered by Nancie Morris RN; for sedation; 14:10:04 Procedure started. 14:10:04 Full Disclosure recording started 14:10:19 Local anesthetic to right femoral artery with Lidocaine 2% by Michael Chopra MD.INITIAL ACCESS ONLY 14:11:00 A 5 Fr sheath was inserted into the Right Femoral artery 14:11:09 Local anesthetic to right femoral vein with Lidocaine 2% by Michael Chopra MD.ADDITIONAL ACCESS 14:11:21 A 7 Fr Short sheath was inserted into the Right Femoral vein 14:11:49 Versed 1 mg I.V. was administered by Nancie Morris RN; for sedation; 14:11:53 Fentanyl 50 mcg I.V. was administered by Nancie Morris RN; for sedation; 14:11:53 A SWAN 7Fr Thermodilution cather (131F7P) was advanced over the wire and used for Procedure. 14:12:07 [place]Josette "C" tip catheter inserted 14:14:36 Catheter removed. 14:14:50 A MULTIPACK Pigtail 5 Fr catheter was advanced over the wire and used for Procedure. 14:14:58 LV gram done using ANGELO 14:16:06 EF : 50 % 14:16:07 Catheter removed. 14:16:16 A MULTIPACK JL 4.0 5Fr catheter was advanced over the wire and used for Procedure. 14:16:25 LCA angiography performed. 14:17:03 Versed 1 mg I.V. was administered by Nancie Morris RN; for sedation; 14:17:06 Fentanyl 50 mcg I.V. was administered by Nancie Morris RN; for sedation; 14:17:27 Catheter removed. 14:17:39 A MULTIPACK 3DRC 5Fr catheter was advanced over the wire and used for Procedure. 14:17:47 RCA angiography performed. 14:18:24 Catheter removed. 14:19:03 CHOICE PT Extra Support 182cm wire ([id number]) opened to sterile field. 14:19:04 SHEATH 6FR [place] (EZQ611) opened to sterile field. 14:19:05 INFLATOR Merit BasixCompak (CG1824) opened to sterile field. 14:19:36 Heparin Bolus 4000 units I.V. was administered by Nancie Morris RN; for anticoagulation; verified with dr chopra 14:19:39 GUIDE 6FR XBLAD 4.0 catheter ([id number]) opened to sterile field. 14:19:56 Sheath upsized to a 6 Fr Short. 14:20:04 SHEATH 6FR [place] (IPI084) opened to sterile field. 14:20:18 CHOICE PT Extra Support 182cm wire ([id number]) opened to sterile field. 14:20:30 INFLATOR Merit BasixCompak (JK6850) opened to sterile field. 14:21:01 6 Fr XBLAD 4 guide catheter was inserted over the wire 14:22:55 ? wire advanced. 14:23:46 Inflation number: 1 A INTEGRITY RX 2.5 x 18 stent ([id number]) was prepped and advanced across the Prox LAD, then inflated to 17 LINA for 0:10 (min:sec). 14:24:10 Stent catheter was removed intact over wire. 14:24:58 Inflation Number: 1 A INTEGRITY RX 3.5 x 18 stent ([id number]) was prepped and advanced across the Prox CX. The stent was deployed at 15 LINA for 0:10 (min:sec). 14:27:08 Plavix 75 mg P.O. was administered by Nancie Morris RN; for antiplatelet therapy; 14:27:11 EXOSEAL 6Fr (EX600) opened to sterile field. 14:27:18 Stent catheter was removed intact over wire. 14:27:20 Wire removed. 14:27:20 Guide catheter removed. 14:27:32 Sheath removed intact; hemostasis achieved with Exoseal to the Right Femoral artery. 14:27:36 Procedure ended.(Physican Out) 14:27:50 Fluoroscopy time 06.10 minutes. 14::55 Fluoroscopy dose: 639 mGy 14::55 Flurop Dose total: 639 14:28:01 Contrast amount:Isovue 300 102ml. 14:28:03 Sharps counted by scrub and verified by R.N. 14:28:05 Insertion/operative site no bleeding no hematoma. 14:28:12 Post right femoral artery:stable 14:28:17 Post right femoral vein:stable 14:28:19 Post Procedure Pulses reassessed and unchanged 14:28:24 Post-procedure physical assessment completed. ASA score P 2 - A patient with mild systemic disease as per Michael Chopra MD. 14:28:27 Post procedure rhythm: unchanged. 14:28:30 Estimated blood loss: 10 ml 14:28:33 Post procedure instruction explained to patient.Patient verbalizes understanding. 14:29:12 Procedure type changed to Cath procedure, Diagnostic procedure, Right Heart, RHC and LHC w/Coronaries, Sedation Charges, Moderate Sedation up to 15 minutes, PCI procedure, Coronary Stent, Coronary Stent Initial x2 14:29:22 Procedure and supply charges have been captured, reviewed, submitted and are correct. 14:30:30 Procedure Complication : No complications 14:30:35 Vital chart was stopped 14:30:41 See physician's report for complete and final results. 14:30:45 Report given to Pre/Post Procedure Room. 14:30:57 Patient transfered to [facility] with Bed. 14:31:00 Procedure ended. 14:31:00 Full Disclosure recording stopped 14:31:05 End room use (Document Last) 14:31:10 ACC-PCI Only Patient was given prescriptions, or instructed by Michael Chopra MD to start/continue the following medications upon discharge: Plavix Intervention Summary Intervention Notes Time ActionType Lesion and Equipment Action# Pressure Duration Attributes Used 14:23:46 Inflate Prox LAD INTEGRITY RX 1 17 00:10 balloon 2.5 x 18 stent ([id number]) 14:24:58 Place stent Prox CX INTEGRITY RX 1 15 00:10 3.5 x 18 stent ([id number]) Device Usage Item Name Manufacture Quantity Catalog Number [facility] Part [facility] Lot# / Charge Number Stock Stock Serial# Code Medline Cath Cardinal 1 [id number] 333024 35674 076868 5 Pack Health ([id number]) SHEATH 5FR Terumo 1 NAQ644 874893 361587 633633 40 [place] (KJQ418) ACIST Syringe Acist 1 40366 970135 634244 781342 20 (47836) Medical Systems Inc Bag Decanter Microtek 1 263119 67265 203162 5 () Medical Inc. DIAGNOSTIC St [place] 1 543346 584498 843756 428861 30 WIRE .035 260cm J wire (774854) ACIST Hand Acist 1 85089 792742 488403 342722 5 Control Medical (55344) Systems Inc ACIST Manifold Acist 1 76478 700841 359492 657692 5 (16056) Medical Systems Inc DIAGNOSTIC Cardinal 1 HI5976 622230 45881 839109 30 Multipack 5Fr Health catheter set (EV5370) Tegaderm 4 x 4 3M 1 1626W 082675 969308 943734 5 (1626W) PERCUTANEOUS Cook Medical 1 G41029 259885 092288 5 ENTRY 19GA needle SHEATH 7FR Terumo 1 SJI957 853323 194736 772632 5 [place] (MDP745) STOPCOCK 3-Way Cook Medical 1 R37671 234186 7368 224848 5 Large Bore (Y90880) SWAN 7Fr [place] 1 131F7P 160309 96226 474331 3 Thermodilution Lifesciences cather (131F7P) MULTIPACK Cardinal 1 016394 5 Pigtail 5 Fr Health catheter MULTIPACK JL Cardinal 1 639613 5 4.0 5Fr Health catheter MULTIPACK 3DRC Cardinal 1 821831 5 5Fr catheter Health CHOICE PT [place] 2 [id number] 591782 573990 851766 5 Extra Support Scientific 182cm wire ([id number]) SHEATH 6FR Terumo 2 TWZ127 377065 562854 226535 40 [place] (RXR729) INFLATOR Merit Merit 2 OB8985 953885 102062 015490 [facility] (IW0431[facility] GUIDE 6FR Cardinal 1 [id number] 312682 644534 317410 3 XBLAD 4.0 Health catheter ([id number]) INTEGRITY RX Medtronic 1 [id number] 393506 062253 187913 5 [id number] 2.5 x 18 stent ([id number]) INTEGRITY RX Medtronic 1 [id number] 100608 198709 258614 5 [id number] 3.5 x 18 stent ([id number]) EXOSEAL 6Fr Cardinal 1 EX600 015864 277130 852609 10 (EX600) Health Signature Audit [place] Stage Time Signature Unsigned Intra-Procedure 09/16/2017 Monae Solitario 2:31:24 PM RT(R) Signatures Monitor : Monae Solitario Signature : RT Date : Time : [place] [id number] [place] [address]
--- NOTE | ~2017-09-13 | CN ---
PATIENT NAME:NIRMALA GREGORIO MEDICAL RECORD: [id number] : 54 LOCATION:D.[facility] D.2104 ADMIT DATE: 09/13/17 ACCOUNT: [id number] CONSULTING PHYSICIAN: GARIMA MARTÍNEZ MD REFERRING PHYSICIAN: DIAMANTE PEARSON MD DATE OF CONSULTATION: 09/13/2017 Cardiology Consultation DIAGNOSES: 1. Shortness of breath. 2. Angina. 3. Coronary artery disease. 4. Previous percutaneous transluminal coronary angioplasty stent. 5. Chronic obstructive pulmonary disease. HISTORY OF PRESENT ILLNESS: This is a gentleman who presents with shortness of breath as well as chest pain yesterday. His EKG has ST-T changes in the inferolateral leads. He does have a history of coronary artery disease. In April of last year, he underwent PTCA stent of his RCA, PDA and PLV by Dr. Young. He has a history of severe COPD, smoking history. His breathing worsened. He did have a productive cough and then the chest pain came after that. His troponin is normal. His hemoglobin is mildly decreased at 11.5. He does have renal insufficiency with BUN of 34 and creatinine 1.1. PHYSICAL EXAMINATION: GENERAL APPEARANCE: Well-nourished, well-developed, appears stated age. Level of distress, comfortable. PSYCHIATRIC: Mental status, alert, normal affect. Orientation, oriented to time, place and person. EYES: Lids and conjunctiva, noninjected. No discharge, no pallor. ENT: Lips, teeth, gums, normal dentition. Oropharynx, no cyanosis, no pallor. NECK: Carotid arteries, bilateral normal upstroke, no bruits, no thrills. JUGULAR VEINS: No jugular venous pressure or distention. CERVICAL LYMPH NODES: Nontender, nonenlarged. THYROID: Not enlarged. Nontender. No nodules. LUNGS: Respiratory effort, unlabored. CHEST: Normal curvature. No thoracic deformity. No chest wall tenderness. Percussion, resonant. Auscultation, clear. No wheezes, no rales, no rhonchi. CARDIOVASCULAR: Precordial exam, nondisplaced. No heaves or pericardial thrills. Rate and rhythm, regular. Heart sounds, normal S1, normal S2. No S3, no gallop, no rub. Systolic murmur, not heard. Diastolic murmur, not heard. EXTREMITIES: No cyanosis, no edema. Peripheral pulses, full and equal in all extremities, except as noted. No bruits appreciated. ABDOMEN: Soft, nondistended. Normal aorta. No bruit. Nontender. No masses. Liver, nontender, no hepatomegaly. Spleen, nontender, no splenomegaly. MUSCULOSKELETAL: No joint tenderness. No joint swelling. No erythema. NEUROLOGICAL: Normal gait, normal strength, normal tone. SKIN: Warm and dry. OVERALL IMPRESSION: Shortness of breath, chest pain compatible with angina and significant EKG changes. Most likely, there is recurrent hemodynamically significant coronary artery disease. We will proceed with coronary angiography only after he stabilizes from a lung standpoint. Further care depends upon the findings of the angiography at that time. CONSULT REPORT [id number] NIRMALA GREGORIO TRANSINT:[id number] Voice Confirmation ID: [id number] DOCUMENT ID: [id number] GARIMA MARTÍNEZ MD at 1202 CC: [id number] DICTATION DATE: 09/13/1748 ALARM INSTALLATION TECHNICIAN: 09/13/17 0935 DIS IN 09/17/[address] [facility] [address] [place] [address]
--- NOTE | ~2017-09-13 | OP ---
PATIENT NAME: NIRMALA GREGORIO MEDICAL RECORD: [id number] :54 LOCATION:D.M2 D.2104 ADMISSION DATE:09/13/17 SURGEON: GARIMA MARTÍENZ MD DATE OF OPERATION: 09/16/2017 PROCEDURES: 1. Right heart catheterization. 2. Left heart catheterization. 3. Selective coronary angiography. 4. Left ventriculogram. 5. Percutaneous transluminal coronary angioplasty stent left anterior descending. 6. Percutaneous transluminal coronary angioplasty stent left circumflex. INDICATION: Angina, coronary artery disease, and pulmonary hypertension. PROCEDURE IN DETAIL: After informed consent was obtained and after a detailed explanation of risks, benefits as well as alternative therapies, the patient elected to proceed with angiogram and angioplasty. Right femoral area was prepped and draped in normal sterile fashion. Right femoral vein was cannulated via modified Seldinger technique with placement of a 7-[place] sheath. Right femoral artery was cannulated via modified Seldinger technique with placement of 6-[place] sheath. All catheters exchanged through the sheath. FINDINGS: The left ventriculogram was performed in standard 30-degree ANGELO view reveals good cardiac wall motion, ejection fraction is 60%. SELECTIVE CORONARY ANGIOGRAPHY: 1. Left main is with no significant angiographic disease. 2. Left anterior descending has 80% stenosis proximally. 3. Left circumflex has 70-80% stenosis proximally. 4. The right coronary has previously placed stents with at least 70% in-stent restenosis and 70% stenosis between the 2 stents. PTCA STENT OF THE LAD AND CIRCUMFLEX: The LAD was addressed with a 2.5 x 18 mm Integrity. The circumflex with a 3.5 x 18 mm Integrity. Result was 0% residual stenosis. OVERALL IMPRESSION: Successful percutaneous transluminal coronary angioplasty stent of the LAD and circumflex going from 80% initial stenosis to 0% residual. PLAN: PTCA stent of the RCA in the near future. TRANSINT:[id number] Voice Confirmation ID: [id number] DOCUMENT ID: [id number] GARIMA MARTÍNEZ MD at 1202 CC: [id number] DICTATION DATE: 09/16/17 1429 REGRINDER OPERATOR: 09/16/17 1453 DIS IN 09/17/17 [place] [id number]
[~2017-09-13 03:16] MED LIST changes: +AMBIEN5 MG PO; +BROVANA15 MCG/2 M INH; +BUSPAR5 MG PO; +CELEXA20 MG PO; +FLUTICASONE PRO16 GM NASAL; +FOLIC ACID1 MG PO; +INCRUSE ELLI62.5 MCG INH; +IPRAT-ALBUT 0.5-3 ML UPD; +MIRALAX17 GM PO; +MOVANTIK25 MG PO; +MUCINEX DM ER1 EAC1 PO; +NICODERM C1 PATCH .3 TRANSDERM; +PROAIR HFA8.5 GM INH; +PROSCAR5 MG PO; +PULMICORT0.5 MG/21 UPD; +ROCEPHIN 1 GM/D51 G1 IVPB; +SINGULAIR10 MG PO; +TESSALON PERLE100 MG PO; +VITAMIN B-1100 M1 PO; +VOLTAREN75 MG PO; +ZITHROMAX 500M500 MG IVPB
[2017-09-13 04:21] LABS: HEMATOCRIT 34.9 % (42.0-54.0); HEMOGLOBIN 11.5 g/dL (13.5-17.5); MCH 33.2 pg (26.0-34.0); MCV 100.9 fL (80.0-100.0); MEAN PLATELET VOLUME 10.8 fL (7.4-10.4); RBC 3.46 10x6/uL (4.20-6.10); RDW 13.5 % (11.5-14.5); WBC 2.7 10x3/uL (4.8-10.8)
[2017-09-13 04:23] LABS: PLATELET COUNT 179 10x3/uL (130-400)
[2017-09-13 04:26] LABS: APTT 27.3 SECONDS (22.8-39.4); INR 0.99 (0.85-1.17); PROTIME 12.7 SECONDS (11.6-15.0)
[2017-09-13 04:27] LABS: D-DIMER-QUANTITATIVE 0.53 ug/mLFEU (0.20-0.54)
[2017-09-13 04:29] LABS: ALBUMIN 3.3 g/dL (3.4-5.0); ALKALINE PHOSPHATASE 80 U/L (46-116); ALT (SGPT) 13 U/L (10-68); CALC OSMOLALITY 273 mosm/kg (275-300); CALCIUM 8.3 mg/dL (8.5-10.1); CARBON DIOXIDE 21.8 mmol/L (21.0-32.0); CHLORIDE - SERUM 99 mmol/L (98-107); CREATININE - SERUM 1.9 mg/dL (0.6-1.3); GLUCOSE 116 mg/dL (74-106); POTASSIUM - SERUM 5.1 mmol/L (3.5-5.1); PROTEIN - SERUM 7.2 g/dL (6.4-8.2); SODIUM 132 mmol/L (136-145); UREA NITROGEN 34 mg/dL (7-18); eGFR NON AFRICAN AMERICAN 38 mL/min (90-120)
[2017-09-13 04:42] LABS: CKMB 2.7 U/L (0.0-3.6); CREATINE KINASE 65 UL (21-232); MAGNESIUM - SERUM 1.8 mg/dL (1.8-2.4)
[2017-09-13 04:47] LABS: TROPONIN-I < 0.017 ng/mL (0.000-0.060)
[2017-09-13 04:53] LABS: EOSINOPHILS 4 % (0-7); LYMPHOCYTES 20 % (15-50); MONOCYTES 2 % (2-11); NEUTROPHILS 40 % (40-80); PLATELET ESTIMATE DECREASED
[2017-09-13 08:32] LABS: CKMB 2.3 U/L (0.0-3.6); CREATINE KINASE 68 UL (21-232); TROPONIN-I 0.025 ng/mL (0.000-0.060)
[2017-09-13 11:15] VITALS: BP 152/87; BMI 18.6
[2017-09-13 14:22] LABS: CKMB 2.8 U/L (0.0-3.6); CREATINE KINASE 93 UL (21-232); TROPONIN-I 0.018 ng/mL (0.000-0.060)
[2017-09-13 19:57] LABS: CKMB 2.8 U/L (0.0-3.6); CREATINE KINASE 107 UL (21-232)
[2017-09-13 19:58] LABS: TROPONIN-I < 0.017 ng/mL (0.000-0.060)
[2017-09-13 20:00] VITALS: BP 177/94
[2017-09-14] VITALS: BP 156/68
[2017-09-14 04:00] VITALS: BP 143/74
[2017-09-14 05:49] LABS: BASOPHILS 0 % (0-2); EOSINOPHILS 0 % (0-7); HEMATOCRIT 35.5 % (42.0-54.0); HEMOGLOBIN 11.8 g/dL (13.5-17.5); LYMPHOCYTES 4.5 % (15-50); MCHC 33.2 g/dL (31.0-37.0); MCV 99.2 fL (80.0-100.0); MEAN PLATELET VOLUME 11.4 fL (7.4-10.4); MONOCYTES 3.7 % (2-11); NEUTROPHILS 89.8 % (40-80); PLATELET COUNT 156 10x3/uL (130-400); RBC 3.58 10x6/uL (4.20-6.10); RDW 13.3 % (11.5-14.5)
[2017-09-14 05:57] LABS: WBC 7.5 10x3/uL (4.8-10.8)
[2017-09-14 06:12] LABS: ALBUMIN 3.3 g/dL (3.4-5.0); ANION GAP 16.6 mmol/L (8-16); BILIRUBIN - TOTAL 0.6 mg/dL (0.2-1.3); CALCIUM 8.8 mg/dL (8.5-10.1); CARBON DIOXIDE 22.1 mmol/L (21.0-32.0); MAGNESIUM - SERUM 1.8 mg/dL (1.8-2.4); PHOSPHOROUS 3.3 mg/dL (2.5-4.9); PROTEIN - SERUM 7.7 g/dL (6.4-8.2)
[2017-09-14 06:13] LABS: CREATININE - SERUM 1.2 mg/dL (0.6-1.3); POTASSIUM - SERUM 3.7 mmol/L (3.5-5.1)
[2017-09-14 07:58] VITALS: BP 150/72
[2017-09-14 10:38] VITALS: BMI 18.6
[2017-09-14 11:34] VITALS: BP 133/66
[2017-09-14 15:21] LABS: APPEARANCE HAZY (CLEAR); BILIRUBIN NEGATIVE (NEGATIVE); COLOR YELLOW (YELLOW); GLUCOSE NEGATIVE (NEGATIVE); KETONE NEGATIVE (NEGATIVE); NITRITE NEGATIVE (NEGATIVE); PROTEIN TRACE mg/dL (NEGATIVE); SPECIFIC GRAVITY 1.015 (1.005-1.020); UROBILINOGEN NORMAL (NORMAL)
[2017-09-14 15:22] LABS: BACTERIA MODERATE /hpf (NONE SEEN); RED CELLS - URINE 0-5 /hpf (0-5); WHITE CELLS - URINE 0-5 /hpf (0-5)
[2017-09-14 16:37] VITALS: BP 142/56
[2017-09-14 20:09] VITALS: BP 153/77
[2017-09-15 01:38] VITALS: BP 143/75
[2017-09-15 05:21] VITALS: BP 138/75
[2017-09-15 07:08] LABS: MAGNESIUM - SERUM 1.6 mg/dL (1.8-2.4); VANCOMYCIN - TROUGH 10.4 ug/mL (10.0-20.0)
[2017-09-15 07:10] LABS: PHOSPHOROUS 2.2 mg/dL (2.5-4.9)
[2017-09-15 07:27] LABS: HEPATITIS C ANTIBODY <0.1 (0.0-0.9)
[2017-09-15 08:20] LABS: IMMUNOGLOBULIN A 392 mg/dL (61-437); IMMUNOGLOBULIN G 967 mg/dL (700-1600)
[2017-09-15 08:45] VITALS: BP 159/92
[2017-09-15 20:00] VITALS: BP 125/77
[2017-09-16] VITALS: BP 132/65
[2017-09-16 02:21] VITALS: Ht 175.3 cm; Wt 55.8 kg
[2017-09-16 04:00] VITALS: BP 129/78
[2017-09-16 05:15] LABS: BASOPHILS 0 % (0-2); EOSINOPHILS 0 % (0-7); HEMOGLOBIN 12.1 g/dL (13.5-17.5); IMMATURE GRANULOCYTES 0.4 % (0-5); LYMPHOCYTES 5.7 % (15-50); MCH 33.2 pg (26.0-34.0); MCHC 33.6 g/dL (31.0-37.0); MCV 98.6 fL (80.0-100.0); MEAN PLATELET VOLUME 11.7 fL (7.4-10.4); MONOCYTES 2.7 % (2-11); NEUTROPHILS 91.2 % (40-80); PLATELET COUNT 175 10x3/uL (130-400); RBC 3.65 10x6/uL (4.20-6.10); RDW 13.6 % (11.5-14.5)
[2017-09-16 05:19] LABS: WBC 5.2 10x3/uL (4.8-10.8)
[2017-09-16 05:27] LABS: ANION GAP 16.5 mmol/L (8-16); CALCIUM 9.3 mg/dL (8.5-10.1); CREATININE - SERUM 1.4 mg/dL (0.6-1.3); MAGNESIUM - SERUM 1.7 mg/dL (1.8-2.4); POTASSIUM - SERUM 3.5 mmol/L (3.5-5.1)
[2017-09-16 05:29] LABS: PHOSPHOROUS 3.1 mg/dL (2.5-4.9)
[2017-09-16 08:08] VITALS: BP 167/94
[2017-09-16 11:02] VITALS: BP 171/87
[2017-09-16 20:00] VITALS: BP 152/82
[2017-09-17] VITALS: BP 143/90
[2017-09-17 04:00] VITALS: BP 148/76
[2017-09-17 04:39] LABS: BASOPHILS 0 % (0-2); EOSINOPHILS 0 % (0-7); IMMATURE GRANULOCYTES 0.6 % (0-5); LYMPHOCYTES 5.1 % (15-50); MCH 32.7 pg (26.0-34.0); MCHC 33.3 g/dL (31.0-37.0); MCV 98.2 fL (80.0-100.0); MEAN PLATELET VOLUME 10.5 fL (7.4-10.4); MONOCYTES 6.1 % (2-11); NEUTROPHILS 88.2 % (40-80); RBC 3.36 10x6/uL (4.20-6.10); RDW 13.4 % (11.5-14.5); WBC 4.7 10x3/uL (4.8-10.8)
[2017-09-17 04:48] LABS: PLATELET COUNT 134 10x3/uL (130-400)
[2017-09-17 05:20] LABS: ANION GAP 15.1 mmol/L (8-16); CALCIUM 8.6 mg/dL (8.5-10.1); CREATININE - SERUM 1.4 mg/dL (0.6-1.3); MAGNESIUM - SERUM 1.5 mg/dL (1.8-2.4); PHOSPHOROUS 3.5 mg/dL (2.5-4.9); POTASSIUM - SERUM 3.1 mmol/L (3.5-5.1)
[2017-09-17 09:47] VITALS: BP 162/92
[2017-09-17] MEDS ORDERED: PREDNISONE20 MG PO (10:28)
[2017-09-17] MEDS ORDERED: LEVAQUIN500 MG PO (10:31)
[2017-09-17 12:42] VITALS: BP 158/96
[2017-09-19 11:13] LABS: IMMUNOGLOBULIN E 612 IU/mL (0-100)
== END 2017-09-17 14:53 | disposition home or self-care (01) | DRG 248 ==
LOC: D.ER 03:16 → D.M2 07:04 → D.EDHOLD 07:04 → D.M2 08:21
PROVIDERS: Family Medicine; Internal Medicine Interventional Cardiology; Internal Medicine Nephrology; Internal Medicine Pulmonary Disease
PROC: B2151ZZ Fluoroscopy of Left Heart using Low Osmolar Contrast (ICD-10-PCS; 2017-09-16)
PROC: 02713EZ Dilation of Coronary Artery, Two Arteries with Two Intraluminal Devices, Percutaneous Approach (ICD-10-PCS; principal; 2017-09-16 12:15)
PROC: 4A023N8 Measurement of Cardiac Sampling and Pressure, Bilateral, Percutaneous Approach (ICD-10-PCS; 2017-09-16 12:15)
PROC: B2111ZZ Fluoroscopy of Multiple Coronary Arteries using Low Osmolar Contrast (ICD-10-PCS; 2017-09-16 12:15)
DX: I25.119 Atherosclerotic heart disease of native coronary artery with unspecified angina pectoris (principal); J15.6 Pneumonia due to other Gram-negative bacteria; I50.31 Acute diastolic (congestive) heart failure; J96.21 Acute and chronic respiratory failure with hypoxia; J13 Pneumonia due to Streptococcus pneumoniae; T82.855A Stenosis of coronary artery stent, initial encounter; I13.0 Hypertensive heart and chronic kidney disease with heart failure and stage 1 through stage 4 chronic kidney disease, or unspecified chronic kidney disease; N17.9 Acute kidney failure, unspecified; E87.1 Hypo-osmolality and hyponatremia; J44.1 Chronic obstructive pulmonary disease with (acute) exacerbation; J44.0 Chronic obstructive pulmonary disease with (acute) lower respiratory infection; Y83.8 Other surgical procedures as the cause of abnormal reaction of the patient, or of later complication, without mention of misadventure at the time of the procedure; N18.9 Chronic kidney disease, unspecified; D75.89 Other specified diseases of blood and blood-forming organs; E78.5 Hyperlipidemia, unspecified; D64.9 Anemia, unspecified; N40.0 Benign prostatic hyperplasia without lower urinary tract symptoms; I27.20 Pulmonary hypertension, unspecified; I08.1 Rheumatic disorders of both mitral and tricuspid valves; K21.9 Gastro-esophageal reflux disease without esophagitis; Z95.5 Presence of coronary angioplasty implant and graft